=== PATIENT | female | born 1965 | race Caucasian/White ===

== ENCOUNTER 2016-06-13 02:31 | Observation (INO) | payer BC ==
[~2016-06-13] VITALS: Ht 170.2 cm; Wt 56.5 kg
[2016-06-13] MEDS: PROMETHAZINE HCL INJ 25 MG in SODIUM CHLORIDE 0.9% 50ML 50 ML IV SCH ×2 (00:15→14:59)
[2016-06-13] MEDS ORDERED: MoRPHine SULFATE 4 MG/ML 1 ML CARP\\VIAL IV STA (02:43)
[2016-06-13] MEDS ORDERED: SODIUM CHLORIDE 0.9% 1000ML 1,000 ML IV STA ×3 (02:43→06:03)
[2016-06-13] MEDS ORDERED: ONDANSETRON INJ 2 MG/ML 2 ML VIAL ONE ×4 (02:44→17:42)
--- NOTE | 2016-06-13 02:48 | EMERGENCY ROOM VISIT NOTE ---
History Report prepared by Krystina: Nuvia Warren Under the Supervision of: Dr. Norm Castro M.D. First contact with patient: 02:38 Chief Complaint: ABDOMINAL PAIN Stated Complaint: STOMACH VIRUS History of Present Illness The patient is a 50 year old female who presents to the Emergency Room with complaints of persistent vomiting that began around nine hours ago. She currently rates her discomfort as a 10/10 in severity. The patient states that she started with abdominal cramping initially. The patient's notes that the patient's mother in law was ill with similar symptoms, but denies being around her. The patient additionally associates nausea and diarrhea, but denies any fever, hematemesis, urinary symptoms, or swelling to her lower extremities. The patient states that her last food intake was ice cream this evening. She denies being on any daily medications. The patient notes a surgical history of an abdominoplasty. Source of History: patient, spouse/significant other () Onset: nine hours ago Position: other (global) Symptom Intensity: 10/10 Quality: other (vomiting) Timing: other (persistent) Associated Symptoms: + abdominal pain, + diarrhea, + nausea, No fevers, No urinary symptoms Review of Systems See HPI for pertinent positives & negatives. A total of 10 systems reviewed and were otherwise negative. Past Medical & Surgical Surgical Problems: (1) S/P abdominoplasty Family History No pertinent family history stated. Social History Smoking Status: Never Smoker Marital Status: Housing Status: lives with significant other Current/Historical Medications No Active Prescriptions or Reported Meds Allergies Coded Allergies: No Known Allergies (Unverified , 06/13/16) Physical Exam Vital Signs Date Time Temp Pulse Resp B/P Pulse Ox O2 Delivery O2 Flow Rate FiO2 06/13/16 06:14 58 17 110/63 99 RA 06/13/16 05:56 06/13/16 04:03 48 16 121/74 98 Room Air 06/13/16 02:32 36.5 54 16 138/67 100 Room Air Physical Exam GENERAL: Patient is anxious appearing, dehydrated appearing and in mild distress. HEENT: No acute trauma, normocephalic atraumatic, mucous membranes moist, no nasal congestion, no scleral icterus. NECK: No stridor, no adenopathy, no meningismus, trachea is midline. LUNGS: No dyspnea. Clear to auscultation and equal bilaterally. No wheeze, no rhonchi. HEART: Regular rate and rhythm. No murmurs, rubs, gallops appreciated. ABDOMEN: Hyperactive bowel sounds. Soft, nontender, no masses appreciated, no peritonitis. BACK: No midline tenderness, no CVA tenderness EXTREMITIES: Normal motion all extremities, no cyanosis, no edema. NEUROLOGIC: Alert and oriented, no acute motor or sensory deficits, no focal weakness, cranial nerves grossly intact. SKIN: No rash, no jaundice, no diaphoresis. Medical Decision & Procedures ER Provider Diagnostic Interpretation: 1 view KUB x-ray: minimal stool throughout, no evidence of obstruction. Extensive surgical clips throughout abdomen. Laboratory Results 06/13/16 02:40 Red Blood Count 4.61, Mean Corpuscular Volume 84.6, Mean Corpuscular Hemoglobin 29.3, Mean Corpuscular Hemoglobin Concent 34.6, Mean Platelet Volume 12.0, Neutrophils (%) (Auto) 91.2, Lymphocytes (%) (Auto) 3.6, Monocytes (%) (Auto) 4.8, Eosinophils (%) (Auto) 0.0, Basophils (%) (Auto) 0.1, Neutrophils # (Auto) 15.83, Lymphocytes # (Auto) 0.63, Monocytes # (Auto) 0.84, Eosinophils # (Auto) 0.00, Basophils # (Auto) 0.01 06/13/16 02:40 Test 06/13/16 02:40 06/13/16 05:27 White Blood Count 17.37 K/uL (4.8-10.8) Red Blood Count 4.61 M/uL (4.2-5.4) Hemoglobin 13.5 g/dL (12.0-16.0) Hematocrit 39.0 % (37-47) Mean Corpuscular Volume 84.6 fL (80-100) Mean Corpuscular Hemoglobin 29.3 pg (25-34) Mean Corpuscular Hemoglobin Concent 34.6 g/dl (32-36) Platelet Count 164 K/uL (130-400) Mean Platelet Volume 12.0 fL (7.4-10.4) Neutrophils (%) (Auto) 91.2 % Lymphocytes (%) (Auto) 3.6 % Monocytes (%) (Auto) 4.8 % Eosinophils (%) (Auto) 0.0 % Basophils (%) (Auto) 0.1 % Neutrophils # (Auto) 15.83 K/uL (1.4-6.5) Lymphocytes # (Auto) 0.63 K/uL (1.2-3.4) Monocytes # (Auto) 0.84 K/uL (0.11-0.59) Eosinophils # (Auto) 0.00 K/uL (0-0.5) Basophils # (Auto) 0.01 K/uL (0-0.2) RDW Standard Deviation 38.0 fL (36.4-46.3) RDW Coefficient of Variation 12.3 % (11.5-14.5) Immature Granulocyte % (Auto) 0.3 % Immature Granulocyte # (Auto) 0.06 K/uL (0.00-0.02) Anion Gap 8.0 mmol/L (3-11) Est Creatinine Clear Calc Drug Dose 75.1 ml/min Estimated GFR () 100.5 Estimated GFR (Non- 86.7 BUN/Creatinine Ratio 19.2 (10-20) Calcium Level 9.1 mg/dl (8.5-10.1) Total Bilirubin 0.8 mg/dl (0.2-1) Direct Bilirubin 0.1 mg/dl (0-0.2) Aspartate Amino Transf (AST/SGOT) 14 U/L (15-37) Alanine Aminotransferase (ALT/SGPT) 22 U/L (12-78) Alkaline Phosphatase 35 U/L (45-117) Total Protein 7.2 gm/dl (6.4-8.2) Albumin 4.1 gm/dl (3.4-5.0) Lipase 107 U/L (73-393) Urine Color YELLOW Urine Appearance CLOUDY (CLEAR) Urine pH 7.5 (4.5-7.5) Urine Specific [place] 1.018 (1.000-1.030) Urine Protein NEG (NEG) Urine Glucose (UA) TRACE (NEG) Urine Ketones TRACE (NEG) Urine Occult Blood NEG (NEG) Urine Nitrite NEG (NEG) Urine Bilirubin NEG (NEG) Urine Urobilinogen NEG (NEG) Urine Leukocyte Esterase NEG (NEG) Urine WBC (Auto) 1-5 /hpf (0-5) Urine RBC (Auto) 0-4 /hpf (0-4) Urine Hyaline Casts (Auto) 1-5 /lpf (0-5) Urine Epithelial Cells (Auto) >30 /lpf (0-5) Urine Bacteria (Auto) NEG (NEG) Urine Renal Epithelial Cells /lpf (0-5) Urine Test NEG (NEG) Laboratory results as reviewed by me. Medications Administered Medications (Trade) Dose Ordered Sig/Delmy Route Start Time Stop Time Status Last Admin Dose Admin Ondansetron HCl 4 mg 4 mg STK-MED ONCE .ROUTE 06/13/16 02:44 06/13/16 02:45 DC 06/13/16 02:47 4 MG Sodium Chloride (Nss 1000ml) 1,000 ml @ 999 mls/hr Q1H1M STAT IV 06/13/16 02:43 06/13/16 03:43 DC 06/13/16 02:47 999 MLS/HR Morphine Sulfate (MoRPHine SULFATE INJ) 4 mg NOW STAT IV 06/13/16 02:43 06/13/16 02:44 DC 06/13/16 02:48 4 MG Ondansetron HCl 4 mg 4 mg NOW STAT IV 06/13/16 03:10 06/13/16 03:11 DC 06/13/16 03:17 4 MG Promethazine HCl 25 mg/Sodium Chloride 51 ml @ 204 mls/hr NOW STAT IV 06/13/16 03:44 06/13/16 03:58 DC 06/13/16 03:44 204 MLS/HR Sodium Chloride (Nss 1000ml) 1,000 ml @ 999 mls/hr Q1H1M STAT IV 06/13/16 03:44 06/13/16 04:44 DC 06/13/16 03:44 999 MLS/HR Promethazine HCl (Phenergan 25MG Home Pack) 1 homepack UD ONCE PO 06/13/16 05:45 06/13/16 05:46 DC 06/13/16 05:50 1 HOMEPACK Ondansetron HCl (ZOFRAN ODT 4MG Home Pack) 1 homepack UD ONCE PO 06/13/16 05:45 06/13/16 05:46 DC 06/13/16 05:50 1 HOMEPACK Ondansetron HCl 4 mg 4 mg NOW STAT IV 06/13/16 06:03 06/13/16 06:04 DC 06/13/16 06:13 4 MG Sodium Chloride (Nss 1000ml) 1,000 ml @ 150 mls/hr Q6H40M STAT IV 06/13/16 06:03 06/13/16 12:42 06/13/16 06:10 150 MLS/HR ED Course 0238: The patient was evaluated in room A10. A complete history and physical exam was performed. 0243: Ordered Morphine Sulfate 4 mg IV, Sodium Chloride 1000 ml @ 999 mls/hr IV , Zofran Inj 4 mg Route. 0310: I reevaluated the patient and she is still nauseous. Ordered Zofran Inj 4 mg IV. 0340: I reevaluated the patient and she is having no further abdominal pain, but is still nauseous. We discussed possibilities of a CT scan and we are going to hold off for now. 0344: Ordered Sodium Chloride 1000 ml @ 999 mls/hr IV, Promethazine HCl 25 mg/ Sodium Chloride 51 ml @ 204 mls/hr IV. 0447: I reevaluated the patient and she is feeling much better. She is sleepy and has not given a urine sample yet. 0540: I reevaluated the patient and she is sleeping with no further nausea. I discussed all the exam findings with her and I discussed the treatment plan. She verbalized complete understanding and agreement. She is ready to go home. 0545: Ordered Ondansetron HCl 1 homepack PO, Promethazine HCl 1 homepack PO. 0600: As the patient was leaving, she began vomiting again. She would now like to stay longer. 0630: I signed the patient out to Dr. Brantley at change of shift. Medical Decision Differential: Gastroenteritis, Food Borne, Electrolyte Abnormality, Dehydration , Intraabdominal Infection, UTI/Pyelonephritis, Bowel Obstruction, Biliary Pathology, amongst other pathology entertained. Very pleasant 50 yr old female arrives for evaluation of vomiting and diarrhea. This is same illness that her [id number] just recovered from. Associated mild diffuse abdominal aching though abdominal exam is benign. No fever. Clearly quite dehydrated. 2L IV fluids give, Zofran x 2 and Phenergan x 1 with resolution of nausea. Small dose morphine for abdominal cramping worked well. She has benign non-surgical abdomen. KUB without obstructive findings. She does have elevated WBC consistent with dehydration and vomiting. Without fever nor more specific TTP I would avoid CT at this time if possible. UA clear and no respiratory complaints. Monitored for several hours, urinated and feeling better. Discharged to home though on leaving started vomiting again. Given another dose IV zofran with further fluids. Will sign out to Dr Brantley awaiting further rehydration and monitoring. Impression Primary Impression: Nausea, vomiting and diarrhea Scribe Attestation The scribe's documentation has been prepared under my direction and personally reviewed by me in its entirety. I confirm that the note above accurately reflects all work, treatment, procedures, and medical decision making performed by me. Departure Information Dispostion Home / Self-Care Prescriptions No Active Prescriptions or Reported Meds Referrals No Doctor, Assigned (PCP) Forms Call Back Authorization, HOME CARE DOCUMENTATION FORM, IMPORTANT VISIT INFORMATION Patient Instructions ED Gastroenteritis Viral, My [facility] Additional Instructions You have received a sedative anti-nausea medication. These medications may cause drowsiness and should not be used with other sedative medications. Do not drive, drink alcohol, perform dangerous activities, nor make important decisions after taking these medications.
[2016-06-13] MEDS ORDERED: ONDANSETRON INJ 2 MG/ML 2 ML VIAL IV STA ×2 (03:10→06:03)
[2016-06-13 03:16] LABS: MEAN CELL VOLUME 84.6 fL (80-100); MEAN CORPUSCULAR HEMOGLOBIN 29.3 pg (25-34); MEAN CORPUSCULAR HGB CONC 34.6 g/dl (32-36); PLATELET COUNT 164 K/uL (130-400); RED BLOOD COUNT 4.61 M/uL (4.2-5.4); WHITE BLOOD COUNT 17.37 K/uL (4.8-10.8)
[2016-06-13 03:34] LABS: BUN/CREATININE RATIO 19.2 (10-20); CALCIUM 9.1 mg/dl (8.5-10.1); CREATININE 0.79 mg/dl (0.60-1.20); POTASSIUM 3.6 mmol/L (3.5-5.1)
[2016-06-13] MEDS ORDERED: PROMETHAZINE HCL INJ 25 MG in SODIUM CHLORIDE 0.9% 50ML 50 ML IV STA (03:44)
[2016-06-13 04:01] LABS: BASO % 0.1 %; BASO ABS # 0.01 K/uL (0-0.2); COMPLETE YES; IG% 0.3 %; LYMPH % 3.6 %; LYMPH ABS # 0.63 K/uL (1.2-3.4); MONO % 4.8 %; NEUT % 91.2 %
[2016-06-13] MEDS ORDERED: PROMETHAZINE HCL INJ 25 MG/ML 1 ML VIAL ONE (04:01)
[2016-06-13] MEDS ORDERED: ONDANSETRON HOME PACK 4MG OD TAB PO ONE (05:45)
[2016-06-13] MEDS ORDERED: PHENERGAN 25MG HOMEPACK PO ONE (05:45)
[2016-06-13 06:07] LABS: URINE APPEARANCE CLOUDY (CLEAR); URINE BILIRUBIN NEG (NEG); URINE COLOR YELLOW; URINE EPITHELIAL CELL AUTO >30 /lpf (0-5); URINE NITRITE NEG (NEG); URINE PH 7.5 (4.5-7.5); URINE SPECIFIC GRAVITY 1.018 (1.000-1.030); UROBILINOGEN NEG (NEG); ZZUR CULT IF INDIC CLEAN CATCH NO
[2016-06-13 06:08] LABS: MANUAL MICROSCOPIC REQUIRED? NO; REVIEW REQ? YES
[2016-06-13] MEDS ORDERED: PROMETHAZINE HCL INJ 25 MG/ML 1 ML VIAL IV STA (06:31)
--- NOTE | 2016-06-13 08:02 | DIAGNOSTIC IMAGING REPORT ---
KUB CLINICAL HISTORY: Nausea and vomiting. FINDINGS: 3 AP supine abdominal radiograph are obtained. No prior studies are available for comparison at the time of dictation. There is a nonobstructed abdominal bowel gas pattern. No evidence of intraperitoneal free air is seen on these supine views. Numerous surgical clips are noted throughout the abdomen. There are numerous pelvic phleboliths. The bony structures appear intact. The lung bases are clear as imaged. IMPRESSION: Nonobstructed abdominal bowel gas pattern noting numerous surgical clips throughout the abdomen and pelvis. Electronically signed by: Librado Davenport M.D. 06/13/2016 8:01 AM Dictated Date/Time: 06/13/2016 8:00 AM
--- NOTE | 2016-06-13 08:39 | EMERGENCY ROOM VISIT NOTE ---
ED Visit Note First contact with patient: 06:31 0645 Took sign off from Dr. Araujo Patient is still nauseous. 08:30 patient is less nauseous but now groggy. She is attempting to drink day sara. 1020 patient still complains of nausea and continues to vomit. The patient has been on 3 different anti-emetics without relief. White count is elevated but I believe it may be related to her dehydration. The patient has a benign abdomen. The patient is now urinating. She is better hydrated. Despite that she will require further evaluation in the hospital. I discussed care with Dr. Barbara Lora over the phone. IMPRESSION: Intractable nausea/vomiting Acute gastroenteritis Dehydration
[2016-06-13] MEDS ORDERED: METOCLOPRAMIDE HCL INJ 5 MG/ML 2 ML VIAL IV STA (08:57)
[2016-06-13 10:45] VITALS: O2SAT 98; Ht 170.2 cm; Wt 56.5 kg
[2016-06-13] MEDS ORDERED: ACETAMINOPHEN 325 MG TAB PO PRN (11:15)
[2016-06-13] MEDS ORDERED: ZOLPIDEM TARTRATE 5 MG TAB PO PRN (11:15)
--- NOTE | 2016-06-13 11:15 | History and Physical ---
History & Physical Date & Time of Service: Jun 13, 2016 at 11:06 Chief Complaint: Stomach Virus Primary Care Physician: No Doctor, Assigned History of Present Illness Source: patient, family This patient is an otherwise healthy 50-year-old female that presented to the emergency department in the middle of the night with intractable nausea, vomiting and diarrhea. Her symptoms started at approximately 5 PM yesterday. They proceeded throughout the night. She is unable to keep anything down. She notes the diarrhea has been more intermittent. The vomiting has definitely been worse. She denies any hematemesis or coffee-ground emesis. She denies any dark, black or bloody stools. No fever or chills. She had some diffuse abdominal cramping, but that has dissipated. The patient notes that her mother- in-law had similar symptoms that resolved on their own. She didn't however have much interaction with her [id number]-[id number]. She is visiting [employer] from [place] for the holiday. She denies any recent antibiotic use. No travel outside of the country. Sick contacts as noted above. In the emergency department, a KUB was performed that did not show any signs of bowel obstruction. Her blood work was notable for leukocytosis at 17,000. Vital signs stable. The patient received numerous antiemetics in addition to fluid and is still feeling nauseous. Past Medical/Surgical History Surgical Problems: (1) S/P abdominoplasty Status: Resolved Family History No pertinent family medical history reported Social History Smoking Status: Never Smoker Alcohol Use: occasionally Marital Status: Housing status: lives with significant other Allergies Coded Allergies: No Known Allergies (Unverified , 06/13/16) Home Medications No Active Prescriptions or Reported Meds Review of Systems 10 system review performed and negative unless noted in HPI or below Physical Exam Vital Signs Date Time Temp Pulse Resp B/P Pulse Ox O2 Delivery O2 Flow Rate FiO2 06/13/16 10:45 98 Room Air 06/13/16 10:07 56 20 103/69 98 Room Air 06/13/16 08:51 58 20 134/74 99 Room Air 06/13/16 06:14 58 17 110/63 99 RA 06/13/16 05:56 06/13/16 04:03 48 16 121/74 98 Room Air 06/13/16 02:32 36.5 54 16 138/67 100 Room Air General Appearance: + moderate distress (moderately uncomfortable in appearance.) Head: normocephalic Eyes: EOMI ENT: + pertinent finding (oral mucosa dry. No exudate noted.) Neck: no JVD Respiratory/Chest: lungs clear Cardiovascular: regular rate, rhythm, + systolic murmur (faint systolic murmur noted.) Abdomen/GI: normal bowel sounds, non tender, soft, + pertinent finding (no guarding or rebound tenderness.) Extremities/Musculoskelatal: no calf tenderness, no pedal edema Neurologic/Psych: oriented x 3 Skin: warm/dry Diagnostics Laboratory Results Results Past 24 Hours Test 06/13/16 02:40 06/13/16 05:27 Range/Units White Blood Count 17.37 4.8-10.8 K/uL Red Blood Count 4.61 4.2-5.4 M/uL Hemoglobin 13.5 12.0-16.0 g/dL Hematocrit 39.0 37-47 % Mean Corpuscular Volume 84.6 80-100 fL Mean Corpuscular Hemoglobin 29.3 25-34 pg Mean Corpuscular Hemoglobin Concent 34.6 32-36 g/dl Platelet Count 164 130-400 K/uL Mean Platelet Volume 12.0 7.4-10.4 fL Neutrophils (%) (Auto) 91.2 % Lymphocytes (%) (Auto) 3.6 % Monocytes (%) (Auto) 4.8 % Eosinophils (%) (Auto) 0.0 % Basophils (%) (Auto) 0.1 % Neutrophils # (Auto) 15.83 1.4-6.5 K/uL Lymphocytes # (Auto) 0.63 1.2-3.4 K/uL Monocytes # (Auto) 0.84 0.11-0.59 K/uL Eosinophils # (Auto) 0.00 0-0.5 K/uL Basophils # (Auto) 0.01 0-0.2 K/uL RDW Standard Deviation 38.0 36.4-46.3 fL RDW Coefficient of Variation 12.3 11.5-14.5 % Immature Granulocyte % (Auto) 0.3 % Immature Granulocyte # (Auto) 0.06 0.00-0.02 K/uL Sodium Level 142 136-145 mmol/L Potassium Level 3.6 3.5-5.1 mmol/L Chloride Level 108 98-107 mmol/L Carbon Dioxide Level 26 21-32 mmol/L Anion Gap 8.0 3-11 mmol/L Blood Urea Nitrogen 15 7-18 mg/dl Creatinine 0.79 0.60-1.20 mg/dl Est Creatinine Clear Calc Drug Dose 75.1 ml/min Estimated GFR () 100.5 Estimated GFR (Non- 86.7 BUN/Creatinine Ratio 19.2 10-20 Random Glucose 163 70-99 mg/dl Calcium Level 9.1 8.5-10.1 mg/dl Total Bilirubin 0.8 0.2-1 mg/dl Direct Bilirubin 0.1 0-0.2 mg/dl Aspartate Amino Transf (AST/SGOT) 14 15-37 U/L Alanine Aminotransferase (ALT/SGPT) 22 12-78 U/L Alkaline Phosphatase 35 45-117 U/L Total Protein 7.2 6.4-8.2 gm/dl Albumin 4.1 3.4-5.0 gm/dl Lipase 107 73-393 U/L Urine Color YELLOW Urine Appearance CLOUDY CLEAR Urine pH 7.5 4.5-7.5 Urine Specific [place] 1.018 1.000-1.030 Urine Protein NEG NEG Urine Glucose (UA) TRACE NEG Urine Ketones TRACE NEG Urine Occult Blood NEG NEG Urine Nitrite NEG NEG Urine Bilirubin NEG NEG Urine Urobilinogen NEG NEG Urine Leukocyte Esterase NEG NEG Urine WBC (Auto) 1-5 0-5 /hpf Urine RBC (Auto) 0-4 0-4 /hpf Urine Hyaline Casts (Auto) 1-5 0-5 /lpf Urine Epithelial Cells (Auto) >30 0-5 /lpf Urine Bacteria (Auto) NEG NEG Urine Renal Epithelial Cells 0-5 /lpf Urine Test NEG NEG Diagnostic Radiology Patient: VINITA GARZA Address1: [address] [place] [address] Rec: [id number] Address2: Acct ID: [id number] [facility] Zip: [place] [address] Date: 1965 Sex: F Room/Bed: Ref Phy: No Doctor, Assigned SC: TAMAR Att Phy: Report #: [id number] Olga Phy: No Doctor, Assigned Test: KUB Admit Phy: Message Clerk: MALLORY Interpreting Phy: Librado Davenport M.D. Diagnosis: STOMACH VIRUS Ordering Phy: Norm Castro M.D. Service Date: 06/13/16 Admit Date: 06/13/16 MNE: [id number] CONF: DICTATED BY: Librado Davenport M.D.]] CC: Norm Castro M.D. No Doctor, Assigned Erich Brantley M.D. Endcc: [~ rep ct add3]] KUB CLINICAL HISTORY: Nausea and vomiting. FINDINGS: 3 AP supine abdominal radiograph are obtained. No prior studies are available for comparison at the time of dictation. There is a nonobstructed abdominal bowel gas pattern. No evidence of intraperitoneal free air is seen on these supine views. Numerous surgical clips are noted throughout the abdomen. There are numerous pelvic phleboliths. The bony structures appear intact. The lung bases are clear as imaged. IMPRESSION: Nonobstructed abdominal bowel gas pattern noting numerous surgical clips throughout the abdomen and pelvis. Electronically signed by: Librado Davenport M.D. 06/13/2016 8:01 AM Dictated Date/Time: 06/13/2016 8:00 AM The status of this report is Signed. Draft = Not yet reviewed or approved by Radiologist. Signed = Reviewed and approved by Radiologist. <AttendingPhy></AttendingPhy> <FamilyPhy>No Doctor, Assigned</FamilyPhy> < PrimaryPhy>No Doctor, Assigned</PrimaryPhy> <UnitNumber>[id number]</UnitNumber> <VisitNumber>[id number]</VisitNumber> <PatientName>RICARDA GARZAAMARIE</ PatientName> <DateOfBirth>1965</DateOfBirth> <Location>[facility]</Location> < ServiceDate>06/13/16</ServiceDate> <MNE>ESINDI</MNE> <OrderingPhy>Norm Castro M.D.</OrderingPhy> <OrderingPhyMNE>f rep ord dr moss</OrderingPhyMNE> < DictatingPhyMNE>f rep dict dr moss</DictatingPhyMNE> <CCListMNE>f rep ct mne</ CCListMNE> <AdmittingPhyMNE>f pt admit dr moss</AdmittingPhyMNE> <AttendingPhyMNE >f pt attend dr moss</AttendingPhyMNE> <ConsultingPhyMNE>f pt consult dr moss</ConsultingPhyMNE> <FamilyPhyMNE>f pt fam dr moss</FamilyPhyMNE> <OtherPhyMNE>f pt other dr moss</OtherPhyMNE> <PrimaryPhyM Impression Assessment and Plan 50-year-old female otherwise healthy presents emergency department with intractable nausea, vomiting and intermittent diarrhea. Abdominal exam is benign. The patient is afebrile. [id number] was noted to have similar illness. Nausea, vomiting, diarrhea-likely secondary to viral gastroenteritis -Observe on medical floor -NPO -Alternate Zofran 4 mg with Phenergan 25 mg IV every 4 hours -Begin scopolamine patch -NS + 20 mEq KCl @ 125 cc/hr -May also try Ativan 0.5 mg IV every 6 hours if the above is not enough nausea control -Pantoprazole 40 mg IV push daily -Send stool culture, C. difficile -Consider CT if symptoms do not resolve within 24 hours -repeat BMP, Mg now -BMP, Mg, CBC in AM DVT prophylaxis -Teds, SCDs -Consider chemical means of prophylaxis if the patient is not discharged tomorrow CODE STATUS -LEVEL I FULL CODE Level of Care Med/Surg Advanced Directives Existing Living Will: No Existing Power of Jogger Operator: No Resuscitation Status FULL RESUSCITATION VTE Prophylaxis VTE Risk Assessment Done? Y/N: Yes Risk Level: Low Given or contraindicated: T.E.D. Stockings, SCD's
[2016-06-13] MEDS: SCOPOLAMINE 1.5 MG TDSY TD SCH ×2 (12:30→22:09)
[2016-06-13 12:57] LABS: BUN/CREATININE RATIO 11.8 (10-20); CREATININE 0.65 mg/dl (0.60-1.20); MAGNESIUM 1.8 mg/dl (1.8-2.4); POTASSIUM 3.7 mmol/L (3.5-5.1)
[2016-06-13 13:38] VITALS: PULSE 58; TEMP 37.6; O2SAT 98
[2016-06-13] MEDS: SODIUM CHLOR 0.45% + 20MEQ KCL 1,000 ML IV SCH ×2 (13:51→23:11)
[2016-06-13] MEDS: PANTOprazole INJ 40 MG in SYRINGE 0 ML IV SCH (13:51)
[2016-06-13 13:53] VITALS: BP 120/78
[2016-06-13] MEDS ORDERED: IV FLUIDS COMPLETED PRN (14:30)
[2016-06-13] MEDS: CHECK SCOPOLAMINE PATCH PLACEMENT SCH ×2 (17:10→22:29)
[2016-06-13] MEDS ORDERED: NURSING VERBAL MED ORDER ONE (17:30)
[2016-06-13] MEDS ORDERED: ONDANSETRON INJ 2 MG/ML 2 ML VIAL IV ONE (17:45)
[2016-06-13] MEDS ORDERED: OPTIRAY 320 IV PRN (18:00)
--- NOTE | 2016-06-13 18:43 | DIAGNOSTIC IMAGING REPORT ---
TWO VIEW CHEST CLINICAL HISTORY: Leukocytosis. FINDINGS: PA and lateral chest radiographs are obtained. No prior studies are available for comparison at the time of dictation. The cardiomediastinal silhouette is unremarkable. Trace pleural effusions are identified. There is bibasilar atelectasis. The lungs are otherwise clear. There is no pneumothorax. The bony thorax appears intact. Surgical clips are noted in the upper abdomen. IMPRESSION: Trace pleural effusions. The lungs are otherwise clear. Electronically signed by: Librado Davenport M.D. 06/13/2016 6:41 PM Dictated Date/Time: 06/13/2016 6:40 PM
--- NOTE | 2016-06-13 18:57 | DIAGNOSTIC IMAGING REPORT ---
CT SCAN OF THE ABDOMEN AND PELVIS WITH IV CONTRAST CLINICAL HISTORY: Nausea and vomiting. Diarrhea. Leukocytosis. COMPARISON STUDY: KUB dated 06/13/2016. TECHNIQUE: Following the IV administration of 115 cc of Optiray 320, CT scan of the abdomen and pelvis is performed from the lung bases to the proximal femora. Images are reviewed in the axial, sagittal, and coronal planes. IV contrast was administered without complication. Automated dose control exposure was utilized. CT DOSE: 259.72 mGy.cm FINDINGS: Lung bases: The heart is normal in size and without pericardial effusion. There are trace pleural effusions. The lung bases are otherwise clear. Liver: The contrast-enhanced liver is normal in size, contour, and attenuation. There is no intrahepatic biliary ductal dilatation. The hepatic veins and portal veins are patent. Hepatic periportal edema is likely related to hydration status. Gallbladder: There is nonspecific gallbladder wall thickening and edema. There is no convincing CT evidence of acute cholecystitis. Spleen: Normal in size and attenuation. Pancreas: Unremarkable. Adrenal glands: Unremarkable. Kidneys: The contrast enhanced kidneys are normal in size and without hydronephrosis. The kidneys enhance symmetrically. Abdominal vasculature: The abdominal aorta is normal in course and caliber. Bowel: The small bowel and colon are normal in course and caliber. The appendix is identified in the right lower quadrant. The appendix is distended measuring up to 10 mm diameter. There is mild appendiceal wall thickening, and no intraluminal gas is seen. No periappendiceal inflammatory stranding is identified. Peritoneum: Trace perihepatic ascites is identified. No intraperitoneal free air is seen. Numerous surgical clips are present along the ventral abdominal wall, likely related to the reported clinical history of previous abdominoplasty. Lymphadenopathy: None. Pelvic viscera: The bladder is distended and grossly unremarkable. The uterus and adnexa are normal as visualized. Ovarian follicles are noted. There is a small volume of free fluid in the cul-de-sac. The cervical mucosa appears hyperemic and fluid is noted within the endocervical canal. Skeletal structures: No lytic or blastic lesions are seen. Mild sclerotic change is noted in the sacroiliac joints. IMPRESSION: 1. The appendix is distended and fluid-filled measuring up to 10 mm in caliber. The appendiceal wall appears mildly thickened. No significant periappendiceal stranding is identified. Findings are concerning for mild acute appendicitis. Clinical correlation will be required. If acute appendicitis does not fit the clinical presentation consider short-term follow-up imaging of the pelvis only for reassessment. 2. There is evidence of fluid overload, including hepatic periportal edema, trace pleural effusions, and trace abdominopelvic fluid. 3. There is nonspecific gallbladder wall thickening, likely related to adjacent hepatic edema. There is no convincing CT evidence of acute cholecystitis. 4. The cervical mucosa appears thickened and hyperemic and there is fluid within the endocervical canal. These findings are nonspecific and correlation with direct visualization is recommended. 5. Additional findings as above. Electronically signed by: Librado Davenport M.D. 06/13/2016 6:55 PM Dictated Date/Time: 06/13/2016 6:47 PM
[2016-06-13] MEDS ORDERED: PIPERACILLIN/TAZOBACTAM 4.5 GM/100ML D5W IV STA (19:24)
[2016-06-13] MEDS ORDERED: PIPERACILL/TAZOBAC IV 4.5 GM in DEXTROSE 5% 100ML 100 ML IV SCH (19:30)
[2016-06-13] MEDS ORDERED: PIPERACILL/TAZOBAC CONSULT ACTIVE PRN (19:45)
[2016-06-13] MEDS ORDERED: PIPERACILL/TAZOBAC IV 3.375 GM in DEXTROSE 5% 100ML IV ONE (20:00)
[2016-06-13 20:16] LABS: PROTHROMBIN TIME (PATIENT) 11.2 SECONDS (9.0-12.0)
--- NOTE | 2016-06-13 20:40 | SURGICAL CONSULTATION ---
DATE OF ADMISSION: 06/13/[address] Higuera for appendicitis. HISTORY OF PRESENT ILLNESS: The patient is a 50-year-old female who was admitted through the Emergency Room early this morning with persistent nausea, vomiting, abdominal pain and some diarrhea which persisted. She apparently continued to have some pain. Her white blood cell count was 17.3. Liver functions are normal. Her electrolytes relatively normal, mildly elevated BUN. She did have a CAT scan this evening, which did show a dilated appendix with thickening of the appendiceal wall, but no periappendiceal inflammation but was consistent with possible early appendicitis. The patient did not complain of any significant right lower quadrant pain. Her other history includes history of abdominoplasty. FAMILY AND SOCIAL HISTORY: Noncontributory. ALLERGIES: She has no known allergies. REVIEW OF SYSTEMS: Please see HPI for positive systems. Ten other systems reviewed and negative. PHYSICAL EXAMINATION: GENERAL: Her appearance is she is mildly uncomfortable and slightly flushed in the face. No rashes. HEENT: Her sclerae are nonicteric. HEAD: Atraumatic. NECK: Supple. LUNGS: Clear with no respiratory distress. HEART: Regular rate and rhythm. ABDOMEN: Flat and soft. She does not have any significant tenderness to palpation or deep palpation in the lower abdomen. She does have some mild nonspecific abdominal discomfort to deep palpation up above in the epigastric area. EXTREMITIES: Without edema. SKIN: Her skin is warm and dry without rashes. LABORATORY DATA: Again her white blood cell count is 17.3. Temperature is 37.6. I did review her CAT scan. ASSESSMENT AND PLAN: A 50-year-old female with potential early appendicitis. My concern is for her low-grade temperature and white blood cell count. I favor proceeding with laparoscopic appendectomy, possible open appendectomy. I have discussed this with the patient and her including potential complications of continued appendicitis with rupture and abscess and bowel involvement. They are reluctant to go ahead with surgery unless we are absolutely certain and also they are from out of town and somewhat reluctant also because of that. It is not my first choice, but I do feel we will treat her with IV antibiotics, fluids, serial observation and reassessment. It may be that we need to repeat her CAT scan versus with the worsening abdominal pain, we may need to proceed with appendectomy. They do understand potential complications. They do wish to treat this medically at the present time.
[2016-06-13] MEDS ORDERED: METRONIDAZOLE / NSS 500 MG in PREMIXED NSS 100 ML IV SCH (21:00)
[2016-06-13] MEDS: ONDANSETRON INJ 2 MG/ML 2 ML VIAL IV. SCH (21:16)
[2016-06-13] MEDS ORDERED: MoRPHine SULFATE 2 MG/ML CARP IV STA (21:58)
[2016-06-13] MEDS ORDERED: MoRPHine SULFATE 2 MG/ML CARP ONE (22:09)
[2016-06-13] MEDS: METRONIDAZOLE / NSS 500 MG in PREMIXED NSS 100 ML IV SCH (22:30)
[2016-06-13 23:42] VITALS: BP 77/44; PULSE 53; TEMP 37.3; O2SAT 95
[2016-06-13 23:46] VITALS: BP 87/44
[2016-06-14] MEDS ORDERED: NURSING VERBAL MED ORDER ONE (00:45)
[2016-06-14] MEDS: PIPERACILL/TAZOBAC IV 3.375 GM in DEXTROSE 5% 100ML IV SCH ×2 (02:45→11:01)
[2016-06-14 04:08] VITALS: BP 96/60; PULSE 45
[2016-06-14] MEDS: ONDANSETRON INJ 2 MG/ML 2 ML VIAL IV. SCH ×2 (04:30→12:55)
[2016-06-14] MEDS: METRONIDAZOLE / NSS 500 MG in PREMIXED NSS 100 ML IV SCH ×2 (04:42→12:53)
[2016-06-14] MEDS ORDERED: MoRPHine SULFATE 2 MG/ML CARP IV STA (05:45)
[2016-06-14 06:06] LABS: BASO % 0.2 %; BASO ABS # 0.02 K/uL (0-0.2); COMPLETE YES; EOS % 0.4 %; HEMATOCRIT 34.2 % (37-47); IG% 0.2 %; LYMPH % 20.2 %; MEAN CELL VOLUME 87.2 fL (80-100); MEAN CORPUSCULAR HEMOGLOBIN 29.3 pg (25-34); MEAN CORPUSCULAR HGB CONC 33.6 g/dl (32-36); MEAN PLATELET VOLUME 11.6 fL (7.4-10.4); MONO % 7.4 %; NEUT % 71.6 %; PLATELET COUNT 122 K/uL (130-400); RED BLOOD COUNT 3.92 M/uL (4.2-5.4); WHITE BLOOD COUNT 9.42 K/uL (4.8-10.8)
--- NOTE | 2016-06-14 06:12 | Surgery Progress Note ---
Surgery Progress Note Date of Service Jun 14, 2016. Subjective No nausea, No vomiting pt has headache, no significant abd pain- certainly no lower abd pain normally has bradycardia and low bp Objective Vital Signs: Date Time Temp Pulse Resp B/P Pulse Ox O2 Delivery O2 Flow Rate FiO2 06/14/16 04:08 45 96/60 06/14/16 00:15 Room Air 06/13/16 23:46 87/44 06/13/16 23:42 37.3 53 14 77/44 95 Room Air 06/13/16 16:00 Room Air 06/13/16 13:53 120/78 06/13/16 13:38 37.6 58 18 98 Room Air 06/13/16 12:19 52 20 124/70 99 Room Air 06/13/16 11:17 57 18 130/76 98 Room Air 06/13/16 10:45 98 Room Air 06/13/16 10:07 56 20 103/69 98 Room Air 06/13/16 08:51 58 20 134/74 99 Room Air 06/13/16 06:14 58 17 110/63 99 RA General Appearance: no apparent distress Respiratory/Chest: no respiratory distress Abdomen: non tender, non distended, soft Laboratory Results: Results Past 24 Hours Test 06/13/16 12:18 06/13/16 14:26 06/13/16 19:57 06/14/16 05:51 Range/Units Sodium Level 142 136-145 mmol/L Potassium Level 3.7 3.5-5.1 mmol/L Chloride Level 107 98-107 mmol/L Carbon Dioxide Level 27 21-32 mmol/L Anion Gap 8.0 3-11 mmol/L Blood Urea Nitrogen 8 7-18 mg/dl Creatinine 0.65 0.60-1.20 mg/dl Est Creatinine Clear Calc Drug Dose 91.3 ml/min Estimated GFR () 119.1 Estimated GFR (Non- 102.8 BUN/Creatinine Ratio 11.8 10-20 Random Glucose 119 70-99 mg/dl Calcium Level 8.0 8.5-10.1 mg/dl Magnesium Level 1.8 1.8-2.4 mg/dl Erythrocyte Sedimentation Rate 2 0-21 mm/hr C-Reactive Protein 2.38 0-0.29 mg/dl Procalcitonin 0.25 0-0.5 ng/mL Prothrombin Time 11.2 9.0-12.0 SECONDS Prothromb Time International Ratio 1.0 0.9-1.1 White Blood Count 9.42 4.8-10.8 K/uL Red Blood Count 3.92 4.2-5.4 M/uL Hemoglobin 11.5 12.0-16.0 g/dL Hematocrit 34.2 37-47 % Mean Corpuscular Volume 87.2 80-100 fL Mean Corpuscular Hemoglobin 29.3 25-34 pg Mean Corpuscular Hemoglobin Concent 33.6 32-36 g/dl Platelet Count 122 130-400 K/uL Mean Platelet Volume 11.6 7.4-10.4 fL Neutrophils (%) (Auto) 71.6 % Lymphocytes (%) (Auto) 20.2 % Monocytes (%) (Auto) 7.4 % Eosinophils (%) (Auto) 0.4 % Basophils (%) (Auto) 0.2 % Neutrophils # (Auto) 6.74 1.4-6.5 K/uL Lymphocytes # (Auto) 1.90 1.2-3.4 K/uL Monocytes # (Auto) 0.70 0.11-0.59 K/uL Eosinophils # (Auto) 0.04 0-0.5 K/uL Basophils # (Auto) 0.02 0-0.2 K/uL RDW Standard Deviation 40.9 36.4-46.3 fL RDW Coefficient of Variation 12.8 11.5-14.5 % Immature Granulocyte % (Auto) 0.2 % Immature Granulocyte # (Auto) 0.02 0.00-0.02 K/uL Microbiology Results 06/13/16 Blood Culture, Received Pending 06/13/16 Blood Culture, Received Pending Assessment & Plan 06/14/16- does not have progressive abd pain suggesting appendicitis, may just be dilated appendix. Will add Ibuprofen for headache and pain- try clear liquids. cont IV atbx. If she progresses , would consider d/c home 24-48 hrs on po atbx. Pt lives in [place]. check am labs
[2016-06-14] MEDS ORDERED: HYDROCODONE/ACETAMOPHEN 5/325MG TAB PO PRN ×2 (06:15)
[2016-06-14] MEDS ORDERED: IBUPROFEN 600 MG TAB PO PRN (06:15)
[2016-06-14 06:25] LABS: BUN/CREATININE RATIO 12.1 (10-20); CALCIUM 8.3 mg/dl (8.5-10.1); CREATININE 0.66 mg/dl (0.60-1.20); MAGNESIUM 2.1 mg/dl (1.8-2.4); POTASSIUM 3.6 mmol/L (3.5-5.1)
[2016-06-14 07:24] VITALS: BP 125/78; PULSE 52; TEMP 37.1; O2SAT 98
[2016-06-14] MEDS: SODIUM CHLOR 0.45% + 20MEQ KCL 1,000 ML IV SCH (08:02)
[2016-06-14] MEDS: CHECK SCOPOLAMINE PATCH PLACEMENT SCH (08:03)
[2016-06-14 08:30] VITALS: O2SAT 98
[2016-06-14] MEDS: PROMETHAZINE HCL INJ 25 MG in SODIUM CHLORIDE 0.9% 50ML 50 ML IV SCH ×2 (09:12→15:00)
[2016-06-14] MEDS: PANTOprazole INJ 40 MG in SYRINGE 0 ML IV SCH (11:01)
--- NOTE | 2016-06-14 12:52 | Surgery Progress Note ---
Surgery Progress Note Date of Service Jun 14, 2016. Subjective tolerating liquids well- wants to go home Objective Vital Signs: Date Time Temp Pulse Resp B/P Pulse Ox O2 Delivery O2 Flow Rate FiO2 06/14/16 08:30 98 Room Air 06/14/16 07:24 37.1 52 16 125/78 98 Room Air 06/14/16 04:08 45 96/60 06/14/16 00:15 Room Air 06/13/16 23:46 87/44 06/13/16 23:42 37.3 53 14 77/44 95 Room Air 06/13/16 16:00 Room Air 06/13/16 13:53 120/78 06/13/16 13:38 37.6 58 18 98 Room Air Laboratory Results: Results Past 24 Hours Test 06/13/16 14:26 06/13/16 19:57 06/14/16 05:51 Range/Units Erythrocyte Sedimentation Rate 2 0-21 mm/hr C-Reactive Protein 2.38 0-0.29 mg/dl Procalcitonin 0.25 0-0.5 ng/mL Prothrombin Time 11.2 9.0-12.0 SECONDS Prothromb Time International Ratio 1.0 0.9-1.1 White Blood Count 9.42 4.8-10.8 K/uL Red Blood Count 3.92 4.2-5.4 M/uL Hemoglobin 11.5 12.0-16.0 g/dL Hematocrit 34.2 37-47 % Mean Corpuscular Volume 87.2 80-100 fL Mean Corpuscular Hemoglobin 29.3 25-34 pg Mean Corpuscular Hemoglobin Concent 33.6 32-36 g/dl Platelet Count 122 130-400 K/uL Mean Platelet Volume 11.6 7.4-10.4 fL Neutrophils (%) (Auto) 71.6 % Lymphocytes (%) (Auto) 20.2 % Monocytes (%) (Auto) 7.4 % Eosinophils (%) (Auto) 0.4 % Basophils (%) (Auto) 0.2 % Neutrophils # (Auto) 6.74 1.4-6.5 K/uL Lymphocytes # (Auto) 1.90 1.2-3.4 K/uL Monocytes # (Auto) 0.70 0.11-0.59 K/uL Eosinophils # (Auto) 0.04 0-0.5 K/uL Basophils # (Auto) 0.02 0-0.2 K/uL RDW Standard Deviation 40.9 36.4-46.3 fL RDW Coefficient of Variation 12.8 11.5-14.5 % Immature Granulocyte % (Auto) 0.2 % Immature Granulocyte # (Auto) 0.02 0.00-0.02 K/uL Sodium Level 140 136-145 mmol/L Potassium Level 3.6 3.5-5.1 mmol/L Chloride Level 107 98-107 mmol/L Carbon Dioxide Level 25 21-32 mmol/L Anion Gap 8.0 3-11 mmol/L Blood Urea Nitrogen 8 7-18 mg/dl Creatinine 0.66 0.60-1.20 mg/dl Est Creatinine Clear Calc Drug Dose 89.9 ml/min Estimated GFR () 118.5 Estimated GFR (Non- 102.3 BUN/Creatinine Ratio 12.1 10-20 Random Glucose 96 70-99 mg/dl Calcium Level 8.3 8.5-10.1 mg/dl Magnesium Level 2.1 1.8-2.4 mg/dl Microbiology Results 06/13/16 Blood Culture, Received Pending 06/13/16 Blood Culture, Received Pending Assessment & Plan addendum - I think pt could be d/c 'd today- will ask for CT dvd and also pt should be d/c on Augmentin [phone] bid- will write script 06/14/16- does not have progressive abd pain suggesting appendicitis, may just be dilated appendix. Will add Ibuprofen for headache and pain- try clear liquids. cont IV atbx. If she progresses , would consider d/c home 24-48 hrs on po atbx. Pt lives in [place]. check am labs 06/14/16- does not have progressive abd pain suggesting appendicitis, may just be dilated appendix. Will add Ibuprofen for headache and pain- try clear liquids. cont IV atbx. If she progresses , would consider d/c home 24-48 hrs on po atbx. Pt lives in [place]. check am labs
[2016-06-14] MEDS ORDERED: AMOX875T PO (12:53)
--- NOTE | 2016-06-14 14:01 | Discharge Instructions ---
Discharge Instructions Date of Service Jun 14, 2016. Admission Reason for Admission: Nausea, Vomiting, Diarrhea Discharge Discharge Diagnosis / Problem: Acute Appendicitis Discharge Goals Goal(s): Improve disease control Activity Recommendations Activity Limitations: per Instructions/Follow-up section Exercise/Sports Limitations: gradually increase as tolerated Shower/Bathe: no limitations . Instructions / Follow-Up Instructions / Follow-Up Primary care physician within 1 week. Surgical Follow up 1 week Worsening abodominal pain, nausea and vomiting report to Emergency room. Current Hospital Diet Patient's current hospital diet: Low fat, light. Discharge Diet Recommended Diet: Regular Diet (Low fat, light) Pending Studies Studies pending at discharge: no Medical Emergencies . Who to Call and When: Medical Emergencies: If at any time you feel your situation is an emergency, please call 911 immediately. . Non-Emergent Contact Non-Emergency issues call your: Primary Care Provider . . "Provider Documentation" section prepared by Lenny Holden. VTE Core Measure Inpt VTE Proph given/why not?: Krystle Crane, JE[facility]
[2016-06-14 16:29] VITALS: BP 125/78; PULSE 52; TEMP 37.1; O2SAT 98
[2016-06-14 16:30] VITALS: O2SAT 96
--- NOTE | 2016-06-20 21:57 | DISCHARGE SUMMARY ---
Please see dictated H and P by Dr. So for full details of her presentation. The patient is a 50-year-old who came in with persistent nausea, vomiting, abdominal pain and some diarrhea. White count was 17,000 and CAT scan showed a dilated appendix with thickening of the appendiceal wall with no periappendiceal inflammation which was consistent with possible earlier appendicitis. She was brought into the hospital and recommendations for surgical consultation with proceeding with laparoscopic appendectomy was discussed with the patient and her . Possibility of rupture and abscess formation and bowel involvement were discussed with the patient. The patient was from out of town and wanted to proceed with medical management. A surgically consultation was obtained with Dr. So who was in favor with proceeding with laparoscopic appendectomy. Risk of sepsis, rupture, and possible from not proceeding was discussed with the patient. She responded to IV antibiotics clinically and her white count fell from 17.4 to 9.42. Her abdominal pain also subsided and she made a decision to be discharged and will follow up with her surgeon in [place]. Copy of her CT scan was sent with the patient. DISCHARGE DIAGNOSES: 1. Probable early acute appendicitis. 2. Leukocytosis. 3. Intractable nausea, vomiting, diarrhea. Time spent in review of the chart, discussion with the patient on the day of discharge 31 minutes.
== END 2016-06-14 16:30 | disposition home or self-care (01) ==
LOC: ENRESERVDT → ENRESERVTM → C.EDB 02:32 → C.4E 11:32
PROVIDERS: ADMIT Hospitalist; ATTEND Hospitalist
DX: R11.2 Nausea with vomiting, unspecified (principal); R19.7 Diarrhea, unspecified; Z98.890 Other specified postprocedural states